=== PATIENT | male | born 1975 | race African-American/Black ===

== ENCOUNTER 2016-06-12 13:43 | Emergency (ER) | payer OTHER ==
[~2016-06-12 13:43] MED LIST: BACTRIM DS TABL1 TA1 PO; HYDROCHLOROTHIA25 MG PO; NORVASC10 MG PO; RANITIDINE HCL150 M1 PO
== END 2016-06-12 18:03 | disposition home or self-care (01) ==
LOC: CED 13:43
DX: R07.2 Precordial pain (principal); I10 Essential (primary) hypertension
CPT/HCPCS: 36415; 99284

== ENCOUNTER 2016-07-25 23:59 | Emergency (ER) | payer OTHER ==
--- NOTE | ~2016-07-25 | CR72 ---
[facility] A Service of [facility] & [facility] RADIOLOGY TEXT RESULTS PATIENT: LINETTE YU LOCATION: [facility] : [birth year] UNIT #: [id number] AGE: [address]: EVA XIAO SEX: M ORDER DR: [id number] [facility] [address] [place], [place] [address] [id number] E MR#: [id number] Acc #: [id number] NAME: LINETTE YU : 1975 SEX: M STUDY DATE/TIME: 07/26/2016 2:01 UNIT: [facility] ROOM: STUDY DESCRIPTION: CR Chest Single View Portable Attending Physician: Eva Xiao Aprn Ordering Physician: Eva Xiao Aprn Primary Care Physician: Hoa Shahid A.P.R.N. MEDICAL IMAGING REPORT This report is preliminary unless electronic signature is present EXAM AP portable chest 07/26/2016 HISTORY 40-year-old male in the ED complaining of chest pain and shortness of air beginning earlier tonight. TECHNIQUE AP portable chest x-ray. FINDINGS Heart size and pulmonary vascularity are within normal limits given AP portable technique. The lungs are clear. No visible pulmonary infiltrate or pleural effusion. No change since 05/23/2016. IMPRESSION Negative chest. Dictated by... Addi Tran M.D. THIS IS AN ELECTRONICALLY VERIFIED REPORT Addi Tran M.D. at 07/26/2016 5:57 AM RAYMUNDOW/[email or web address] TD: 07/26/2016 02:39 JOB #: [id number] MEDICAL IMAGING REPORT Page 1 of 1 COPY
--- NOTE | ~2016-07-25 | EKG ---
PATIENT: LINETTE YU UNIT #: [id number] Ventricular Rate: 85 BPM Atrial Rate: 85 BPM P-R Interval: 164 ms QRS Duration: 114 ms Q-T Interval: 374 ms QTC Calculation(Bezet): 445 ms P [place]: 32 degrees Calculated R [place]: 21 degrees Calculated T [place]: -45 degrees Diagnosis Line: Normal sinus rhythm Diagnosis Line: Nonspecific ST and T wave abnormality Diagnosis Line: Abnormal ECG Diagnosis Line: No previous ECGs available Diagnosis Line: Confirmed by ALANA ALSTON MD ([id number]) on 07/26/2016 Diagnosis Line: 6:30:59 PM INTERPRETING MD: ALECIA NOEL
[2016-07-26 02:37] LABS: PARTIAL THROMBOPLASTIN TIME 26.6 SECONDS (23.5-31.3); PROTHROMBIN TIME (PATIENT) 10.8 SECONDS (9.6-11.5)
[2016-07-26 02:45] LABS: ALBUMIN SERUM 4.2 g/dL (3.5-5.0); BILIRUBIN, DIRECT 0.1 mg/dL (0.0-0.2); BILIRUBIN,INDIRECT 0.7 mg/dL (0.0-0.9); BILIRUBIN,TOTAL 0.8 mg/dL (0.2-2.0); BUN/CREATININE RATIO 19.23; CALCIUM SERUM 8.9 mg/dL (8.4-10.2); CREATININE SERUM 1.3 mg/dL (0.6-1.4); GLOM FILT RATE Estimated 80.3 mL/min (>60); PROTEIN TOTAL SERUM 7.8 g/dL (6.0-8.3)
[2016-07-26 02:55] LABS: POTASSIUM 2.5 mmol/L (3.5-5.1)
[2016-07-26 02:58] LABS: POC - CKMB 1.9 ng/mL (0.0-7.9); POC - TROPONIN <0.05 ng/mL (<=0.05)
[2016-07-26 03:49] LABS: POC - CKMB 2.2 ng/mL (0.0-7.9); POC - TROPONIN <0.05 ng/mL (<=0.05)
== END 2016-07-26 06:26 | disposition home or self-care (01) ==
LOC: CED 23:59
PROVIDERS: Nurse Practitioner Family
DX: R07.89 Other chest pain (principal); I25.2 Old myocardial infarction; I10 Essential (primary) hypertension; J45.909 Unspecified asthma, uncomplicated
CPT/HCPCS: 36415; 71010; 80048; 80076; 82553; 84484; 85610; 85730; 93005; 99284

== ENCOUNTER 2016-12-15 20:26 | Emergency (ER) | payer OTHER ==
--- NOTE | ~2016-12-15 | EKG ---
PATIENT: LINETTE YU UNIT #: [id number] Ventricular Rate: 86 BPM Atrial Rate: 86 BPM P-R Interval: 160 ms QRS Duration: 102 ms Q-T Interval: 338 ms QTC Calculation(Bezet): 404 ms P [place]: 22 degrees Calculated R [place]: 3 degrees Calculated T [place]: -76 degrees Diagnosis Line: Normal sinus rhythm Diagnosis Line: T wave abnormality, consider inferolateral Diagnosis Line: ischemia Diagnosis Line: Abnormal ECG Diagnosis Line: When compared with ECG of 25-JUL-2016 23:23, Diagnosis Line: ST no longer elevated in Anterior leads Diagnosis Line: Confirmed by PERLA VELASQUEZ MD ([id number]) on Diagnosis Line: 12/16/2016 2:10:35 PM INTERPRETING MD: EVA NOEL
--- NOTE | ~2016-12-15 | CT16 ---
[facility] A Service of [facility] RADIOLOGY TEXT RESULTS PATIENT: LINETTE YU LOCATION: [facility] : 79 UNIT #: [id number] AGE: [address]: Abhishek Gtz MD SEX: M ORDER DR: [id number] [facility] [address] [place], [place] [address] [id number] E MR#: [id number] Acc #: [id number] NAME: LINETTE YU : 1975 SEX: M STUDY DATE/TIME: 12/16/2016 01:36 UNIT: [facility] ROOM: STUDY DESCRIPTION: CT Angio Chest for PE Attending Physician: Abhishek Gtz M.D. Ordering Physician: Satya Figueroa D.O. Primary Care Physician: Hoa Shahid A.P.R.N. MEDICAL IMAGING REPORT This report is preliminary unless electronic signature is present EXAM Chest CTA 12/16/2016 at 0136 INDICATION Chest pain and epigastric pain that started tonight. History of hypertension. TECHNIQUE Axial images were obtained through the chest following IV contrast administration. 3-D reformats were obtained. Comparison made with 05/23/2016. This CT exam was performed with one or more of the following radiation dose reduction techniques: Automatic exposure control, adjustment of mA and/or kV according to patient size, and iterative reconstruction. FINDINGS There is no pulmonary embolism or aortic dissection. There is coronary artery disease. There is no pleural or pericardial effusion. There is no adenopathy. The lungs are clear. Upper abdomen shows fatty infiltration of the liver. IMPRESSION 1. No pulmonary embolism or aortic dissection. No active disease in the chest. 2. Coronary artery disease. 3. Hepatic steatosis. Dictated by... Luis Howe Jr., M.D. THIS IS AN ELECTRONICALLY VERIFIED REPORT Luis Howe Jr., M.D. at 12/16/2016 9:20 PM [facility] A Service of [facility] RADIOLOGY TEXT RESULTS PATIENT: LINETTE YU LOCATION: [facility] : [birth year] UNIT #: [id number] AGE: [address]: Abhishek Gtz MD SEX: M ORDER DR: RAPHAEL/aretha TD: 12/16/2016 14:36 JOB #: [id number] MEDICAL IMAGING REPORT Page 1 of 1 COPY
--- NOTE | ~2016-12-15 | CR72 ---
[facility] A Service of [facility] & [facility] RADIOLOGY TEXT RESULTS PATIENT: LINETTE YU LOCATION: [facility] : [birth year] UNIT #: [id number] AGE: [address]: Abhishek Gtz MD SEX: M ORDER DR: [id number] [facility] [address] [place], [place] [address] [id number] E MR#: [id number] Acc #: [id number] NAME: LINETTE YU : 1975 SEX: M STUDY DATE/TIME: 12/15/2016 21:02 UNIT: [facility] ROOM: STUDY DESCRIPTION: CR Chest Single View Portable Attending Physician: Abhishek Gtz M.D. Ordering Physician: Satya Figueroa D.O. Primary Care Physician: Hoa Shahid A.P.R.N. MEDICAL IMAGING REPORT This report is preliminary unless electronic signature is present EXAM Portable chest 12/15 at 21:02 INDICATIONS Chest pain today. COMPARISON 07/26/2016. FINDINGS A single AP portable view of the chest shows both lungs to be clear. The heart is normal in size. The mediastinal contour is normal. No significant bone abnormalities are seen. IMPRESSION Normal portable chest. Dictated by... Luis Howe Jr., M.D. THIS IS AN ELECTRONICALLY VERIFIED REPORT Luis Howe Jr., M.D. at 12/16/2016 9:13 PM RLK/solomon TD: 12/16/2016 13:47 JOB #: [id number] MEDICAL IMAGING REPORT Page 1 of 1 COPY
[2016-12-15 21:17] LABS: POC - CKMB 2.7 ng/mL (0.0-7.9); POC - TROPONIN <0.05 ng/mL (<=0.05)
[2016-12-15 21:18] LABS: BASOPHIL# 0.1 X10e3 (0-0.3); BASOPHIL% 1.1 % (0-2.5); EOSINOPHIL# 0.1 X10e3 (0-0.7); EOSINOPHIL% 1.4 % (0.0-7.0); HEMATOCRIT 41.1 % (38.0-50.0); HEMOGLOBIN 13.9 gm/dL (13.0-16.0); LYMPHOCYTE# 2.2 X10e3 (1.0-3.5); LYMPHOCYTE% 42.3 % (17.0-45.0); MEAN CELL VOLUME 92.4 FL (83-96); MEAN CORPUSCULAR HEMOGLOBIN 31.2 PG (28-34); MEAN CORPUSCULAR HGB CONC 33.8 g/dL (30-36); MEAN PLATELET VOLUME 7.2 FL (6.5-11.5); MONOCYTE# 0.5 X10e3 (0-1.0); MONOCYTE% 10.2 % (3.0-12.0); NEUTROPHIL# 2.3 X10e3 (1.5-7.1); PLATELET COUNT 219 X10e3 (140-420); RED BLOOD COUNT 4.45 X10e (3.90-5.60); RED CELL DISTRIBUTION WIDTH 12.4 % (11.0-15.5); WHITE BLOOD COUNT 5.2 X10e3 (4.0-10.5)
[2016-12-15 21:19] LABS: DIFF IND NO
[2016-12-15 21:54] LABS: ALBUMIN SERUM 4.4 g/dL (3.5-5.0); BILIRUBIN, DIRECT 0.2 mg/dL (0.0-0.2); BILIRUBIN,INDIRECT 0.8 mg/dL (0.0-0.9); BUN/CREATININE RATIO 8.57; CALCIUM SERUM 8.9 mg/dL (8.4-10.2); CREATININE SERUM 1.4 mg/dL (0.6-1.4); GLOM FILT RATE Estimated 72.9 mL/min (>60); PROTEIN TOTAL SERUM 8.2 g/dL (6.0-8.3)
[2016-12-15 21:58] LABS: INR 1.1; PARTIAL THROMBOPLASTIN TIME 27.2 SECONDS (23.5-31.3); PROTHROMBIN TIME (PATIENT) 11.4 SECONDS (10.0-11.7)
[2016-12-15 21:58] LABS: POTASSIUM 2.7 mmol/L (3.5-5.1)
[2016-12-15 23:06] LABS: POC - TROPONIN <0.05 ng/mL (<=0.05)
== END 2016-12-16 03:13 | disposition left against medical advice (07) ==
LOC: CED 20:26
PROVIDERS: Emergency Medicine
DX: R07.9 Chest pain, unspecified (principal); F10.129 Alcohol abuse with intoxication, unspecified; E87.6 Hypokalemia
CPT/HCPCS: 36415; 71010; 71275; 80048; 80076; 82553; 83735; 83880; 84484; 85025; 85379; 85610; 85730; 93005; 96365; 96367; 96368; 99285; G0480; J3475; Q9967